=== PATIENT | male | born 1945 | race African-American/Black ===

== ENCOUNTER 2016-08-22 12:57 | Inpatient (IN) | payer OTHER ==
[2016-08-22 13:30] VITALS: BMI 23.5
--- NOTE | 2016-08-22 14:38 | HP ---
COWS - Scale Resting Pulse: 1= OR 81-100 Sweatin=Flushed/Facial Moisture Restless Observation: 1= Difficult to Sit Still Pupil Size: 0= Normal to Room Light Bone or Joint Aches: 2= Severe Diffuse Aches Runny Nose/ Eye Tearin= Runny Nose/Eyes GI Upset > 30mins: 2= Nausea/Diarrhea Tremor Observation: 2= Slight Tremor Visible Yawning Observation: 2= >3x During Session Anxiety or Irritability: 2=Irritable/Anxious Goose Flesh Skin: 0=Smooth Skin COWS Score: [address] [facility] - HPI Chief Complaint: I am tired of using. Allergies/Adverse Reactions: Allergies Allergy/AdvReac Type Severity Reaction Status Date / Time No Known Allergies Allergy Verified 08/22/16 14:48 History of Present Illness: pt is a 71yr old male with a history of heroin dependence seeking detox for treatment. Exam Limitations: No Limitations - Ebola screening Have you traveled outside of the country in the last 21 days: No Have you had contact with anyone from an Ebola affected area: No Have you been sick,other than usual withdrawal symptoms: No Do you have a fever: No - Review of Systems Constitutional: Chills, Diaphoresis, Loss of Appetite, Night Sweats, Changes in sleep, Unintentional Wgt. Loss EENT: reports: Blurred Vision Respiratory: reports: Cough, Productive cough (yellowing sputum) Cardiac: reports: No Symptoms Reported GI: reports: Constipated, Poor Appetite, Poor Fluid Intake : reports: No Symptoms Reported Musculoskeletal: reports: No Symptoms Reported Integumentary: reports: Flushing, Sweating Neuro: reports: Tingling, Tremors Endocrine: reports: Excessive Sweating, Flushing, Intolerance to Cold, Intolerance to Heat Hematology: reports: No Symptoms Reported Psychiatric: reports: Judgement Intact, Mood/Affect Appropiate, Orientated x3, Agitated, Anxious Other Systems: Reviewed and Negative Patient History - Patient Medical History Hx Anemia: No Hx Asthma: No Hx Chronic Obstructive Pulmonary Disease (COPD): No Hx Cancer: No Hx Cardiac Disorders: No Hx Congestive Heart Failure: No Hx Hypertension: Yes (ON LISINOPRIL) Hx Hypercholesterolemia: No Hx Pacemaker: No HX Cerebrovascular Accident: No Hx Seizures: No Hx Dementia: No Hx Diabetes: No Hx Gastrointestinal Disorders: No Hx Liver Disease: No Hx Genitourinary Disorders: No Hx Sexually Transmitted Disorders: Yes (syphilis/ treated. ) Hx Renal Disease (ESRD): No Hx Thyroid Disease: No Hx Human Immunodeficiency Virus (HIV): No Hx Hepatitis C: Yes (diagnosed yrs ago NOT TREATED) Hx Depression: No (DENIES) Hx Suicide Attempt: No (DENIES) Hx Bipolar Disorder: No Hx Schizophrenia: No - Patient Surgical History Past Surgical History: No Hx Neurologic Surgery: No Hx Cataract Extraction: No Hx Cardiac Surgery: No Hx Lung Surgery: No Hx Breast Surgery: No Hx Breast Biopsy: No Hx Abdominal Surgery: No Hx Appendectomy: No Hx Cholecystectomy: No Hx Genitourinary Surgery: No Hx Section: No Hx Orthopedic Surgery: No Anesthesia Reaction: No - PPD History Previous Implant?: Yes Documented Results: Negative w/proof Date: 10/02/15 Results: 0 mm PPD to be Administered?: No - Reproductive History Patient is a Female of Child Bearing Age (11 -55 yrs old): No - Smoking Cessation Smoking history: Current every day smoker Have you smoked in the past 12 months: Yes Aproximately how many cigarettes per day: 5 Hx Chewing Tobacco Use: No Initiated information on smoking cessation: Yes 'Breaking Loose' booklet given: 08/22/16 - Substance & Tx. History Hx Alcohol Use: No Hx Substance Use: Yes Substance Use Type: Heroin Hx Substance Use Treatment: Yes - Substances Abused Heroin Route: Inhalation Frequency: Daily Amount used: 6-7 bags Age of first use: 42 Date of Last Use: 08/22/16 Family Disease History - Family Disease History Family Disease History: Heart Disease: Mother (HTN,CHF) Admission Physical Exam S - Vital Signs Vital Signs: Vital Signs - 24 hr 08/22/16 13:07 Temperature 97.5 F L Pulse Rate 84 Respiratory 18 Rate Blood Pressure 117/70 - Physical General Appearance: Yes: Appropriately Dressed, Moderate Distress, Tremorous, Irritable, Sweating, Anxious HEENTM: Yes: Hearing grossly Normal, Normal Voice Respiratory: Yes: Lungs Clear, Normal Breath Sounds, No Respiratory Distress Neck: Yes: No masses,lesions,Nodules Breast: Yes: Within Normal Limits Cardiology: Yes: Regular Rhythm, Regular Rate, S1, S2 Abdominal: Yes: Normal Bowel Sounds, Non Tender, Soft Genitourinary: Yes: Within Normal Limits Back: Yes: Normal Inspection Musculoskeletal: Yes: full range of Motion Extremities: Yes: Normal Capillary Refill, Normal Inspection, Non-Tender, Tremors Neurological: Yes: Fully Oriented, Alert, Normal Response Integumentary: Yes: Normal Color Lymphatic: Yes: Within Normal Limits - Diagnostic (1) Hepatitis C Current Visit: Yes Status: Chronic Qualifiers: Viral hepatitis chronicity: chronic Hepatic coma status: without hepatic coma Qualified Code(s): B18.2 - Chronic viral hepatitis C (2) Hypertension Current Visit: Yes Status: Chronic Qualifiers: Hypertension type: essential hypertension Qualified Code(s): I10 - Essential (primary) hypertension (3) Nicotine dependence Current Visit: Yes Status: Chronic Qualifiers: Nicotine product type: cigarettes Substance use status: uncomplicated Qualified Code(s): F17.210 - Nicotine dependence, cigarettes, uncomplicated (4) Opioid dependence with withdrawal Current Visit: Yes Status: Chronic Cleared for Admission S - Detox or Rehab [facility] Level of Care: Medically Managed Detox Regimen/Protocol: Methadone [facility] Breath Alcohol Content Breath Alcohol Content: 0 Urine Drug Screen - Results Drug Screen Negative: No Urine Drug Screen Results: BEVERLY-Cocaine, OPI-Opiates, MDMA-Ecstasy, BZO- Benzodiazepines, MTD-Methadone
[2016-08-22] MEDS ORDERED: IBUPROFEN 400 MG TABLET (FP) PO PRN (14:45)
[2016-08-22] MEDS ORDERED: guaiFENesin/D-METHORPHAN HB 10 ML UNIT-DOSE CUPS PO PRN (14:45)
[2016-08-22] MEDS ORDERED: LOPERAMIDE HCL 2 MG CAPSULE PO PRN (14:45)
[2016-08-22] MEDS ORDERED: hydrOXYzine PAMOATE 50 MG CAPSULE (FP) PO PRN (14:45)
[2016-08-22] MEDS ORDERED: MAGNESIUM HYDROX 2400MG/30ML ORAL SUSPENSION 30 ML CUP PO PRN (14:45)
[2016-08-22] MEDS ORDERED: ACETAMINOPHEN 325 MG TABLET (FP) PO PRN (14:45)
[2016-08-22] MEDS ORDERED: MAG HYDROX/AL HYDROX/SIMETH 30 ML UNIT-DOSE CUP PO PRN (14:45)
[2016-08-22] MEDS ORDERED: MENTHOL/PHENOL 1 EACH UD MM PRN (14:45)
[2016-08-22] MEDS ORDERED: P-EPHED 60MG/TRIPROLIDI 2.5MG TABLET PO PRN (14:45)
[2016-08-22] MEDS ORDERED: MAGNESIUM CITRATE 300 ML BOTTLE PO PRN (14:45)
[2016-08-22] MEDS ORDERED: METHADONE HCL 10 MG TABLET (FOR DETOX USE ONLY) PO ONE ×2 (15:25→23:00)
[2016-08-22] MEDS: diazePAM 5 MG TABLET PO PRN ×2 (15:58→22:38)
[2016-08-22 20:53] LABS: URINE APPEARANCE CLEAR; URINE BILIRUBIN NEGATIVE (NEGATIVE); URINE BLOOD NEGATIVE (NEGATIVE); URINE COLOR YELLOW; URINE GLUCOSE (UA) NEGATIVE (NEGATIVE); URINE KETONE NEGATIVE (NEGATIVE); URINE LEUK ESTERASE NEGATIVE (NEGATIVE); URINE NITRITE NEGATIVE (NEGATIVE); URINE PROTEIN NEGATIVE (NEGATIVE); URINE UROBILINOGEN NEGATIVE E.U./dl (0.2-1.0)
[2016-08-22] MEDS: THIAMINE HCL 100 MG TABLET (FP) PO SCH (22:38)
[2016-08-22] MEDS: diphenhydrAMINE HCL 50 MG CAPSULE PO PRN (22:39)
[2016-08-23] MEDS ORDERED: METHADONE HCL 10 MG TABLET (FOR DETOX USE ONLY) PO ONE (10:00)
--- NOTE | 2016-08-23 10:07 | PN ---
BHS COWS - Scale Resting Pulse: 1= [place] 81-100 Sweatin=Flushed/Facial Moisture Restless Observation: 1= Difficult to Sit Still Pupil Size: 0= Normal to Room Light Bone or Joint Aches: 1= Mild Discomfort Runny Nose/ Eye Tearin= Nasal Congestion GI Upset > 30mins: 0= None Tremor Observation of Outstretched Hands: 2= Slight Tremor Visible Yawning Observation: 1= 1-2x During Session Anxiety or Irritability: 2=Irritable/Anxious Goose Flesh Skin: 3=Piloerection COWS Score: 14 BHS Progress Note (SOAP) Subjective: sweats shakes interrupted sleep agitation anxiety Objective: 08/23/16 10:06 Vital Signs Temperature 96.4 F L 08/23/16 10:05 Pulse Rate 91 H 08/23/16 10:05 Respiratory Rate 18 08/23/16 10:05 Blood Pressure 109/74 08/23/16 10:05 O2 Sat by Pulse Oximetry (%) Laboratory Tests 08/22/16 15:50 Urine Color Yellow Urine Appearance Clear Urine pH 5.0 D Ur Specific [place] 1.020 Urine Protein Negative Urine Glucose (UA) Negative Urine Ketones Negative Urine Blood Negative Urine Nitrite Negative Urine Bilirubin Negative Urine Urobilinogen Negative Ur Leukocyte Esterase Negative labs pending awake/alert ambulating no acute distress Assessment: 08/23/16 10:06 withdrawal sx Plan: continue detox increase fluids labs pending
[2016-08-23 10:33] LABS: ALBUMIN 4.2 g/dl (3.4-5.0); CALCIUM 9.9 mg/dL (8.5-10.1); GLUCOSE,RANDOM 102 mg/dL (74-106)
[2016-08-23 10:36] LABS: ALK PHOS 67 U/L (45-117); ANION GAP 5 (8-16); BILIRUBIN,TOTAL 1.2 mg/dL (0.2-1.0); CO2 31 mmol/L (21-32); CREATININE 1.1 mg/dL (0.7-1.3); SGOT/AST 27 U/L (15-37); SGPT/ALT 26 U/L (12-78); TOT PROT 8.3 g/dl (6.4-8.2)
[2016-08-23 10:37] LABS: MCH 30.5 pg (25.7-33.7); MEAN CELL VOLUME 95.4 fl (80-96); MEAN PLT VOLUME 11.4 fl (7.5-11.1); PLATELET COUNT 154 K/MM3 (134-434); RDW 13.9 % (11.9-15.9)
[2016-08-23] MEDS: NICOTINE 14 MG/24 HOURS TOPICAL PATCH TD SCH (11:01)
[2016-08-23] MEDS: PRENATAL VITAMINS W/ FOLIC ACID TABLET (FP) PO SCH (11:01)
--- NOTE | 2016-08-23 11:49 | EKG ---
Test Reason : Blood Pressure : / mmHG Vent. Rate : 054 BPM Atrial Rate : 054 BPM P-R Int : 164 ms QRS Dur : 096 ms QT Int : 462 ms P-R-T Axes : 015 023 -21 degrees QTc Int : 438 ms SINUS BRADYCARDIA INCOMPLETE RIGHT BUNDLE BRANCH BLOCK LEFT VENTRICULAR HYPERTROPHY WITH REPOLARIZATION ABNORMALITY CANNOT RULE OUT SEPTAL INFARCT , AGE UNDETERMINED ABNORMAL ECG NO PREVIOUS ECGS AVAILABLE Confirmed by GLADIS DE LA ROSA, IVAN ([id number]) on 08/23/2016 11:48:29 AM Referred By: Confirmed By:IVAN GRIFFITH MD
[2016-08-23] MEDS: diazePAM 5 MG TABLET PO PRN ×2 (17:27→22:27)
[2016-08-23] MEDS: diphenhydrAMINE HCL 50 MG CAPSULE PO PRN (22:27)
[2016-08-23] MEDS: THIAMINE HCL 100 MG TABLET (FP) PO SCH (22:27)
[2016-08-24] MEDS ORDERED: METHADONE HCL 5 MG TABLET (FOR DETOX USE ONLY) PO ONE (10:00)
--- NOTE | 2016-08-24 10:06 | PN ---
S CIWA - CIWA Score Nausea/Vomitin Muscle Tremors: 2 Anxiety: 2 Agitation: 2 Paroxysmal Sweats: 3 Orientation: 0-Oriented Tacttile Disturbances: 1-Very Mild Itch/Numbness Auditory Disturbances: 0-None Visual Disturbances: 0-None Headache: 0-None Present CIWA-Ar Total Score: 13 BHS Progress Note (SOAP) Subjective: sweats, shakes , diarrhea Objective: 08/24/16 10:02 Vital Signs Temperature 97.8 F 08/24/16 06:51 Pulse Rate 90 08/24/16 06:51 Respiratory Rate 20 08/24/16 06:51 Blood Pressure 134/75 08/24/16 06:51 O2 Sat by Pulse Oximetry (%) Laboratory Tests 08/22/16 08/23/16 08/23/16 15:50 06:00 06:00 WBC 5.0 RBC 4.14 Hgb 12.6 D Hct 39.5 MCV 95.4 MCHC 32.0 RDW 13.9 Plt Count 154 MPV 11.4 H Sodium 139 Potassium 4.5 Chloride 103 Carbon Dioxide 31 Anion Gap 5 L BUN 17 D Creatinine 1.1 D Creat Clearance w eGFR > 60 Random Glucose 102 D Calcium 9.9 Total Bilirubin 1.2 H D AST 27 D ALT 26 D Alkaline Phosphatase 67 D Total Protein 8.3 H D Albumin 4.2 D Urine Color Yellow Urine Appearance Clear Urine pH 5.0 D Ur Specific [place] 1.020 Urine Protein Negative Urine Glucose (UA) Negative Urine Ketones Negative Urine Blood Negative Urine Nitrite Negative Urine Bilirubin Negative Urine Urobilinogen Negative Ur Leukocyte Esterase Negative RPR Titer 08/23/16 06:00 WBC RBC Hgb Hct MCV MCHC RDW Plt Count MPV Sodium Potassium Chloride Carbon Dioxide Anion Gap BUN Creatinine Creat Clearance w eGFR Random Glucose Calcium Total Bilirubin AST ALT Alkaline Phosphatase Total Protein Albumin Urine Color Urine Appearance Urine pH Ur Specific [place] Urine Protein Urine Glucose (UA) Urine Ketones Urine Blood Urine Nitrite Urine Bilirubin Urine Urobilinogen Ur Leukocyte Esterase RPR Titer Nonreactive pt aox3 in nad ambulating Assessment: 08/24/16 10:03 withrawl sx's 08/24/16 10:06 Plan: cont detox increase fluids imodium prn
[2016-08-24] MEDS: PRENATAL VITAMINS W/ FOLIC ACID TABLET (FP) PO SCH (10:48)
[2016-08-24] MEDS: NICOTINE 14 MG/24 HOURS TOPICAL PATCH TD SCH (10:49)
[2016-08-24] MEDS ORDERED: PATIENT'S OWN MEDICATION (NON-FORMULARY) (Lisinopril/Hydrochlorothiazide [Lisinopril-Hctz PO SCH (11:00)
--- NOTE | 2016-08-24 11:33 | CONSULT ---
[facility] Psychiatric Consult - Data Date of interview: 08/24/16 Admission source: [facility] Identifying data: This is 71 years old male with no psychiatric hospitalization history intoxicated with Heroin and Nicotine Substance Abuse History: - Smoking Cessation. Smoking history: Current every day smoker. Have you smoked in the past 12 months: Yes. Aproximately how many cigarettes per day: 5. Hx Chewing Tobacco Use: No. Initiated information on smoking cessation: Yes. 'Breaking Loose' booklet given: 08/22/16. - Substance & Tx. History. Hx Alcohol Use: No. Hx Substance Use: Yes. Substance Use Type : Heroin. Hx Substance Use Treatment: Yes. - Substances Abused. Heroin. Route: Inhalation. Frequency: Daily. Amount used: 6-7 bags. Age of first use : 42. Date of Last Use: 08/22/16 Medical History: HepC+, HTN Psychiatric History: DENIES PAST PSYCHIATRIC HISTORY Physical/Sexual Abuse/Trauma History: Denies Additional Comment: Observation. Detox Unit Care Protocol Mental Status Exam - Mental Status Exam Alert and Oriented to: Person Cognitive Function: Fair Patient Appearance: Unkempt Mood: Sad Affect: Flat Patient Behavior: Sedated Speech Pattern: Delayed Voice Loudness: Mildly Soft/Quiet Thought Process: Circumstantial Thought Disorder: Being Controlled Hallucinations: Denies Suicidal Ideation: Denies Homicidal Ideation: Denies Insight/Judgement: Fair Sleep: Difficulty falling asleep Appetite: Fair Muscle strength/Tone: Mild Hypotonicity Gait/Station: Shuffling Additional Comments: Observation. Detox Unit Care Protocol Psychiatric Findings - Problem List ([place] 1, 2,3) (1) Nicotine dependence Current Visit: Yes Status: Chronic Qualifiers: Nicotine product type: cigarettes Substance use status: uncomplicated Qualified Code(s): F17.210 - Nicotine dependence, cigarettes, uncomplicated (2) Opioid dependence with withdrawal Current Visit: Yes Status: Chronic (3) Drug-induced mood disorder Current Visit: Yes Status: Suspected - Initial Treatment Plan Initial Treatment Plan: Observation. Detox Unit Care Protocol
[2016-08-24] MEDS: HYDROCHLOROTHIAZIDE 12.5 MG CAPSULE (FP) PO SCH (12:23)
[2016-08-24] MEDS: LISINOPRIL 20 MG TABLET (FP) PO SCH (12:23)
[2016-08-24] MEDS ORDERED: GABAPENTIN 400 MG CAPSULE (FP) PO SCH (14:00)
[2016-08-24] MEDS ORDERED: GABAPENTIN 300 MG CAPSULE (FP) PO SCH (15:54)
[2016-08-24] MEDS ORDERED: traZODone HCL 50 MG TABLET (FP) PO SCH (22:00)
[2016-08-24] MEDS: diazePAM 5 MG TABLET PO PRN (22:26)
[2016-08-24] MEDS: THIAMINE HCL 100 MG TABLET (FP) PO SCH (22:26)
[2016-08-25] MEDS ORDERED: METHADONE HCL 5 MG TABLET (FOR DETOX USE ONLY) PO ONE (10:00)
[2016-08-25] MEDS: HYDROCHLOROTHIAZIDE 12.5 MG CAPSULE (FP) PO SCH (10:18)
[2016-08-25] MEDS: LISINOPRIL 20 MG TABLET (FP) PO SCH (10:18)
[2016-08-25] MEDS: PRENATAL VITAMINS W/ FOLIC ACID TABLET (FP) PO SCH (10:18)
[2016-08-25] MEDS: NICOTINE 14 MG/24 HOURS TOPICAL PATCH TD SCH (10:19)
--- NOTE | 2016-08-25 11:25 | PN ---
BHS Progress Note (SOAP) Subjective: tired sweats shakes interrupted sleep Objective: 08/25/16 11:24 Vital Signs Temperature 98.1 F 08/25/16 10:00 Pulse Rate 74 08/25/16 10:00 Respiratory Rate 20 08/25/16 10:00 Blood Pressure 135/88 08/25/16 10:00 O2 Sat by Pulse Oximetry (%) Laboratory Tests 08/22/16 08/23/16 08/23/16 15:50 06:00 06:00 WBC 5.0 RBC 4.14 Hgb 12.6 D Hct 39.5 MCV 95.4 MCHC 32.0 RDW 13.9 Plt Count 154 MPV 11.4 H Sodium 139 Potassium 4.5 Chloride 103 Carbon Dioxide 31 Anion Gap 5 L BUN 17 D Creatinine 1.1 D Creat Clearance w eGFR > 60 Random Glucose 102 D Calcium 9.9 Total Bilirubin 1.2 H D AST 27 D ALT 26 D Alkaline Phosphatase 67 D Total Protein 8.3 H D Albumin 4.2 D Urine Color Yellow Urine Appearance Clear Urine pH 5.0 D Ur Specific [place] 1.020 Urine Protein Negative Urine Glucose (UA) Negative Urine Ketones Negative Urine Blood Negative Urine Nitrite Negative Urine Bilirubin Negative Urine Urobilinogen Negative Ur Leukocyte Esterase Negative RPR Titer 08/23/16 06:00 WBC RBC Hgb Hct MCV MCHC RDW Plt Count MPV Sodium Potassium Chloride Carbon Dioxide Anion Gap BUN Creatinine Creat Clearance w eGFR Random Glucose Calcium Total Bilirubin AST ALT Alkaline Phosphatase Total Protein Albumin Urine Color Urine Appearance Urine pH Ur Specific [place] Urine Protein Urine Glucose (UA) Urine Ketones Urine Blood Urine Nitrite Urine Bilirubin Urine Urobilinogen Ur Leukocyte Esterase RPR Titer Nonreactive awake/alert ambulating no acute distress Assessment: 08/25/16 11:25 withdrawal sx Plan: continue detox increase fluids
[2016-08-25] MEDS: THIAMINE HCL 100 MG TABLET (FP) PO SCH (22:33)
[2016-08-25] MEDS: diphenhydrAMINE HCL 50 MG CAPSULE PO PRN (22:33)
[2016-08-26] MEDS ORDERED: METHADONE HCL 10 MG TABLET (FOR DETOX USE ONLY) PO ONE (10:00)
[2016-08-26] MEDS: PRENATAL VITAMINS W/ FOLIC ACID TABLET (FP) PO SCH (10:24)
[2016-08-26] MEDS: HYDROCHLOROTHIAZIDE 12.5 MG CAPSULE (FP) PO SCH (10:24)
[2016-08-26] MEDS: LISINOPRIL 20 MG TABLET (FP) PO SCH (10:24)
[2016-08-26] MEDS: NICOTINE 14 MG/24 HOURS TOPICAL PATCH TD SCH (10:25)
--- NOTE | 2016-08-26 13:56 | PN ---
BHS Progress Note (SOAP) Subjective: [place], sweats, interrupted sleep, anxiety, tremor Objective: 08/26/16 13:55 Vital Signs - 8 hr 08/26/16 08/26/16 06:29 10:01 Temperature 97.6 F 96.8 F L Pulse Rate 60 66 Respiratory 16 18 Rate Blood Pressure 105/67 149/97 Laboratory Tests 08/22/16 08/23/16 08/23/16 15:50 06:00 06:00 WBC 5.0 RBC 4.14 Hgb 12.6 D Hct 39.5 MCV 95.4 MCHC 32.0 RDW 13.9 Plt Count 154 MPV 11.4 H Sodium 139 Potassium 4.5 Chloride 103 Carbon Dioxide 31 Anion Gap 5 L BUN 17 D Creatinine 1.1 D Creat Clearance w eGFR > 60 Random Glucose 102 D Calcium 9.9 Total Bilirubin 1.2 H D AST 27 D ALT 26 D Alkaline Phosphatase 67 D Total Protein 8.3 H D Albumin 4.2 D Urine Color Yellow Urine Appearance Clear Urine pH 5.0 D Ur Specific [place] 1.020 Urine Protein Negative Urine Glucose (UA) Negative Urine Ketones Negative Urine Blood Negative Urine Nitrite Negative Urine Bilirubin Negative Urine Urobilinogen Negative Ur Leukocyte Esterase Negative RPR Titer 08/23/16 06:00 WBC RBC Hgb Hct MCV MCHC RDW Plt Count MPV Sodium Potassium Chloride Carbon Dioxide Anion Gap BUN Creatinine Creat Clearance w eGFR Random Glucose Calcium Total Bilirubin AST ALT Alkaline Phosphatase Total Protein Albumin Urine Color Urine Appearance Urine pH Ur Specific [place] Urine Protein Urine Glucose (UA) Urine Ketones Urine Blood Urine Nitrite Urine Bilirubin Urine Urobilinogen Ur Leukocyte Esterase RPR Titer Nonreactive Assessment: 08/26/16 13:55 withdrawal sx Plan: cont detox, fluids
[2016-08-26] MEDS: THIAMINE HCL 100 MG TABLET (FP) PO SCH (22:46)
[2016-08-27] MEDS ORDERED: METHADONE HCL 5 MG TABLET (FOR DETOX USE ONLY) PO ONE (06:00)
[2016-08-27 10:57] VITALS: BP 157/94; PULSE 76; TEMP 97.7
--- NOTE | 2016-08-27 11:26 | PN ---
BHS Progress Note (SOAP) Subjective: no complaints Objective: 08/27/16 11:25 Vital Signs - 8 hr 08/27/16 08/27/16 06:00 10:57 Temperature 98.1 F 97.7 F Pulse Rate 61 76 Respiratory 16 18 Rate Blood Pressure 132/83 157/94 Laboratory Tests 08/22/16 08/23/16 08/23/16 15:50 06:00 06:00 WBC 5.0 RBC 4.14 Hgb 12.6 D Hct 39.5 MCV 95.4 MCHC 32.0 RDW 13.9 Plt Count 154 MPV 11.4 H Sodium 139 Potassium 4.5 Chloride 103 Carbon Dioxide 31 Anion Gap 5 L BUN 17 D Creatinine 1.1 D Creat Clearance w eGFR > 60 Random Glucose 102 D Calcium 9.9 Total Bilirubin 1.2 H D AST 27 D ALT 26 D Alkaline Phosphatase 67 D Total Protein 8.3 H D Albumin 4.2 D Urine Color Yellow Urine Appearance Clear Urine pH 5.0 D Ur Specific [place] 1.020 Urine Protein Negative Urine Glucose (UA) Negative Urine Ketones Negative Urine Blood Negative Urine Nitrite Negative Urine Bilirubin Negative Urine Urobilinogen Negative Ur Leukocyte Esterase Negative RPR Titer 08/23/16 06:00 WBC RBC Hgb Hct MCV MCHC RDW Plt Count MPV Sodium Potassium Chloride Carbon Dioxide Anion Gap BUN Creatinine Creat Clearance w eGFR Random Glucose Calcium Total Bilirubin AST ALT Alkaline Phosphatase Total Protein Albumin Urine Color Urine Appearance Urine pH Ur Specific [place] Urine Protein Urine Glucose (UA) Urine Ketones Urine Blood Urine Nitrite Urine Bilirubin Urine Urobilinogen Ur Leukocyte Esterase RPR Titer Nonreactive Assessment: completed detox, medically stable Plan: d/c today
--- NOTE | 2016-08-27 11:27 | DS ---
[facility] Detox Discharge Summary Admission Date: 08/22/16 Discharge Date: 08/27/16 - History Present History: Opioid Dependence Pertinent Past History: HTN, hep c, nicotien dependence,anxiety, depression and insomnia - Physical Exam Results Vital Signs: Vital Signs Temperature 97.7 F 08/27/16 10:57 Pulse Rate 76 08/27/16 10:57 Respiratory Rate 18 08/27/16 10:57 Blood Pressure 157/94 08/27/16 10:57 O2 Sat by Pulse Oximetry (%) Pertinent Admission Physical Exam Findings: withdrawal sx - Treatment Hospital Course: Detox Protocol Followed, Detoxed Safely, Responded well, Discharged Condition Good, Rehab Referral Accepted Patient has Accepted a Rehab Referral to: Yes - Medication Discharge Medications: Ambulatory Orders Lisinopril/Hydrochlorothiazide [Lisinopril-Hctz 20-12.5 mg Tab] 1 each PO DAILY 09/30/15 - Diagnosis (1) Hepatitis C Status: Chronic Qualifiers: Viral hepatitis chronicity: chronic Hepatic coma status: without hepatic coma Qualified Code(s): B18.2 - Chronic viral hepatitis C (2) Hypertension Status: Chronic Qualifiers: Hypertension type: essential hypertension Qualified Code(s): I10 - Essential (primary) hypertension (3) Nicotine dependence Status: Chronic Qualifiers: Nicotine product type: cigarettes Substance use status: uncomplicated Qualified Code(s): F17.210 - Nicotine dependence, cigarettes, uncomplicated (4) Opioid dependence with withdrawal Status: Chronic (5) Drug-induced mood disorder Status: Suspected - AMA Did Patient Leave Against Medical Advice: No
== END 2016-08-27 10:27 | disposition home or self-care (01) | DRG 897 ==
LOC: YASAS 12:57 → Y6N 15:16
PROVIDERS: ADMIT Internal Medicine Addiction Medicine; ATTEND Internal Medicine Addiction Medicine
PROC: HZ2ZZZZ Detoxification Services for Substance Abuse Treatment (ICD-10-PCS; principal; 2016-08-22)
DX: F11.23 Opioid dependence with withdrawal (principal); F17.210 Nicotine dependence, cigarettes, uncomplicated; F19.24 Other psychoactive substance dependence with psychoactive substance-induced mood disorder; I10 Essential (primary) hypertension; B18.2 Chronic viral hepatitis C; Z87.438 Personal history of other diseases of male genital organs
CPT/HCPCS: 36415; 80053; 81003; 85027; 86593; 93005; 93010